=== PATIENT | female | born 1940 | race Caucasian/White ===

== ENCOUNTER 2017-03-23 18:04 | Inpatient (IN) | payer MEDICARE, BC ==
[~2017-03-23] VITALS: Ht 157.5 cm; Wt 45.4 kg
--- NOTE | 2017-03-23 18:04 | NUR ---
[place] FROM [facility] C/O ALTERED MENTAL STATUS TODAY REFUSED MEDS RECENTLY DISCHARGE FROM [facility] YESTERDAY. AWAITING MD ORDER
--- NOTE | 2017-03-23 18:48 | NUR ---
VERBAL ORDER FROM DR MADDOX HOLD ON IV FLUIDS AND IV ACCESS.
--- NOTE | 2017-03-23 18:49 | NUR ---
CALLED [facility] FENTON SPOKE TO GOBA VERBALIZED SHE DOESNT KNOW WHY PATIENT WAS DISCHARGE FROM HOSPITAL . PT REFUSED MEDS TODAY MORE CONFUSED THAN BASELINE
[2017-03-23] MEDS ORDERED: IV NS 0.9% 500 ML BAG IV ONE (19:00)
[2017-03-23 19:02] LABS: BASOPHILS % (AUTO) 0.2 % (0.0-2.0); EOSINOPHILS # (AUTO) 0.1 /CMM (0.0-0.7); EOSINOPHILS % (AUTO) 0.3 % (0.0-6.0); HEMATOCRIT 28 % (33-45); HEMOGLOBIN 9.4 g/dL (11.5-14.8); LYMPHOCYTES # (AUTO) 0.7 /CMM (0.8-4.8); LYMPHOCYTES % (AUTO) 3.9 % (20.0-44.0); MEAN CORPUSCULAR HEMOGLOBIN 26 PG (26.0-33.0); MEAN CORPUSCULAR HGB CONC 34 g/dl (31.0-36.0); MEAN CORPUSCULAR VOLUME 77 fL (82-100); MONOCYTES # (AUTO) 1.2 /CMM (0.1-1.30); MONOCYTES % (AUTO) 6.9 % (2.0-12.0); NEUTROPHILS # (AUTO) 16.1 /CMM (1.8-8.9); NEUTROPHILS % (AUTO) 88.7 % (43.0-81.0); PLATELET COUNT (AUTO) 196 /CMM (150-450); RDW COEFFICIENT OF VARIATION 14.1 (11.5-15.0); RED BLOOD CELL COUNT(AUTO) 3.58 MIL/uL (4.0-5.2); WHITE BLOOD COUNT (AUTO) 18.1 K/uL (4.3-11.0)
--- NOTE | 2017-03-23 19:12 | NUR ---
EKG IN PROGRESS AT BEDSIDE
[2017-03-23 19:17] LABS: CALCIUM, SERUM 9.8 mg/dL (8.5-10.1); CARBON DIOXIDE 29 mmol/L (21-32); CHLORIDE 99 mmol/L (98-107); GLUCOSE 234 mg/dL (74-106); POTASSIUM 4.1 mmol/L (3.5-5.1); SODIUM SERUM 134 mmol/L (136-145); UREA NITROGEN, BLOOD 35 mg/dL (7-18)
[2017-03-23 19:24] LABS: ALANINE AMINOTRANSFERASE 13 U/L (12-78); ALBUMIN 3.2 g/dL (3.4-5.0); ALKALINE PHOSPHATASE 57 U/L (46-116); ASPARTATE AMINOTRANSFERASE 12 U/L (15-37); BILIRUBIN,DIRECT 0.1 mg/dL (0.0-0.2); BILIRUBIN,TOTAL 0.4 mg/dL (0.2-1.0); LIPASE 53 U/L (73-393); TROPONIN I < 0.017 ng/mL (0.00-0.056)
[2017-03-23 19:26] LABS: INR 1.06 (0.87-1.13)
[2017-03-23] MEDS ORDERED: LORAZEPAM INJ 2 MG/ML VIAL ONE (19:27)
[2017-03-23] MEDS ORDERED: LORAZEPAM INJ 2 MG/ML VIAL IV ONE (19:30)
[2017-03-23 19:32] LABS: APPEARANCE,URINE Clear (CLEAR); BILIRUBIN,URINE SMALL (NEGATIVE); BLOOD, URINE Trace-lysed Ery/uL (NEGATIVE); COLOR,URINE Yellow (YELLOW); KETONES,URINE Trace (NEGATIVE); LEUKOCYTE ESTERASE ,URINE Negative (NEGATIVE); NITRITE, URINE Negative (NEGATIVE); PH,URINE 5.5 (5.0-8.0); PROTEIN,URINE 100 mg/dl (NEGATIVE); UGLUCOSE Negative (NEGATIVE); UROBILINOGEN,URINE 0.2 EU/dL (0.2)
[2017-03-23 19:41] LABS: BACTERIA,URINE Rare /HPF (None Seen); SQUAMOUS EPITHELIAL CELL,UR Few /HPF (None Seen); WBC,URINE 0-2 /HPF (0-3)
--- NOTE | 2017-03-23 19:46 | NUR ---
LAB CALLED REGARDING LACTIC ACID DRAW.
--- NOTE | 2017-03-23 19:55 | NUR ---
CALLED RT FOR ABG
[2017-03-23] MEDS ORDERED: HALOPERIDOL LACTATE INJ 5 MG/ML VIAL ONE (19:56)
[2017-03-23] MEDS ORDERED: HALOPERIDOL LACTATE INJ 5 MG/ML VIAL IM ONE (20:00)
[2017-03-23 20:16] LABS: ABG BASE EXCESS -4.8 mmol/L; ABG PCO2 27.9 mmHg (35.0-45.0); ABG PH 7.435 (7.350-7.450); ABG PO2 99.8 mmHg (75.0-100.0); AaDO2 16.5 mmHg; COHb 0.7 % (0.5-1.5); MetHb 0.4 % (0.0-1.5); O2Hb 95.9 % (94.0-97.0); SITE, ABG Right Brachial; VENT MODE, BG RA
--- NOTE | 2017-03-23 20:17 | NUR ---
PT TRANSPORTED TO RADIOLOGY FOR CT HEAD.
--- NOTE | 2017-03-23 20:17 | NUR ---
PT TO CT SCAN
--- NOTE | 2017-03-23 20:29 | NUR ---
PT BACK FROM CT SCAN
[2017-03-23] MEDS ORDERED: PIPERACILLIN /TAZOBACTAM 3.375 G in IV D5W 50 ML IV ONE (21:00)
[2017-03-23] MEDS ORDERED: VANCOMYCIN 1 GM in IV D5W 250 ML IV ONE (21:00)
[2017-03-23] MEDS ORDERED: IV NS 0.9% 1,000 ML BAG IV ONE ×2 (21:00)
--- NOTE | 2017-03-23 21:20 | NUR ---
SAMI PAGED, WHEEL INSTALLER
--- NOTE | 2017-03-23 21:21 | NUR ---
CALLED FOR [facility] BED
[2017-03-23] MEDS ORDERED: MORPHINE SULFATE INJ 2 MG/ML DISP.SYRIN IV PRN (21:30)
[2017-03-23] MEDS ORDERED: Z GUARD REMEDY 2 OZ OINT TP PRN (21:30)
[2017-03-23] MEDS ORDERED: ENOXAPARIN SODIUM 40 MG/0.4 ML DISP.SYRIN SQ SCH (21:30)
[2017-03-23] MEDS ORDERED: ACETAMINOPHEN 650 MG/SUPP.RECT RC PRN (21:30)
--- NOTE | 2017-03-23 21:30 | NUR ---
THIERNO 115-1
--- NOTE | 2017-03-23 21:31 | NUR ---
MOVE SHEETS TURNED IN
[2017-03-23] MEDS ORDERED: ENOXAPARIN SODIUM 40 MG/0.4 ML DISP.SYRIN SQ ONE (21:36)
[2017-03-23 23:11] LABS: CSF GLUCOSE 119 mg/dL (40-70)
[2017-03-23 23:13] LABS: CSF PROTEIN 239.5 mg/dL (15-45)
--- NOTE | 2017-03-23 23:27 | NUR ---
PT RESTING QUIETLY, NO ACUTE DISTRESS NOTED, RESP EVEN AND UNLABORED.
[2017-03-23] MEDS ORDERED: CEFTRIAXONE 1GM BAG (ER ONLY) 100 ML IV ONE (23:44)
[2017-03-23] MEDS ORDERED: DEXAMETHASONE SOD PHOSPHATE 10 MG/ML VIAL ONE (23:44)
[2017-03-24] MEDS ORDERED: DEXAMETHASONE SOD PHOSPHATE 4 MG/ML VIAL IV ONE
[2017-03-24] MEDS ORDERED: CEFTRIAXONE 2 G in IV D5W 100 ML IV SCH ×2
--- NOTE | 2017-03-24 00:28 | NUR ---
REPORT CALLED TO TELE 1 RN. WILL TRANSPORT PT VIA ACLS PROTOCOL.
--- NOTE | 2017-03-24 00:28 | NUR ---
ACYCLOVIR 500MG IVPB ENDORSED TO TELE 1 ELLIOT HUANG.
[2017-03-24 00:40] VITALS: BP 140/79
--- NOTE | 2017-03-24 00:40 | NUR ---
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 NO BLEEDING NOTED ON THE LUMBAR SITE.ALL NEEDS ATTENDED TOO CALL LIGHT WITHIN REACH .DUE MEDS GIVEN ORDERED,ADMISSION ROUTINE CARE RENDERED ,PTS IS UNDER THE SERVICE OF DR KAMERON MARSH, SEEN AND EXAMINE BY DR MELO AT BEDSIDE WITH ORDER MADE AND CARRIED OUT, BODY CHECK DONE, NO SKIN ISSUE NOTED.PTS IS CONTACT ISOLATION DROPLET D/T POSSIBLE MENINGITIS .ALL NEEDS ATTENDED TOO CALL LIGHT WITHIN REACH KEPT PTS CLEAN DRY AND COMFORTABLE,WILL CONTINUE TO MONITOR PTS.
[2017-03-24] MEDS: IV NS 0.9% 1,000 ML IV PRN ×2 (01:29→17:58)
[2017-03-24] MEDS ORDERED: ACYCLOVIR IV 1 GM/20 ML VIAL IV ONE (01:54)
[2017-03-24] MEDS ORDERED: ACYCLOVIR IV 500 MG in IV D5W 100 ML IV SCH ×8 (02:00→06:00)
[2017-03-24 04:00] VITALS: BP 151/78
--- NOTE | 2017-03-24 04:27 | NUR ---
THIERNO RN NOTES PTS NOTED MORE ALERT VERBALLY RESPONSIVE AT THIS TIME, ABLE TO MAKE NEEDS KNOWN.
[2017-03-24] MEDS ORDERED: PIPERACILLIN /TAZOBACTAM 2.25 G VIAL IV ONE (04:36)
[2017-03-24] MEDS ORDERED: PIPERACILLIN /TAZOBACTAM 4.5 G in IV D5W 50 ML IV SCH (05:00)
--- NOTE | 2017-03-24 06:26 | NUR ---
THIERNO RN NOTES PTS IN BED AWAKE AND RESPONSIVE REMAINS ON IV FLUIDS NS AT 100CC/HR IN PROGRESS, NO SIGNIFICANT CHANGE NOTED , NO SOB NO DISTRESS , WILL ENDORSE TO RN DAY SHIFT .
[2017-03-24] MEDS ORDERED: TRAM50TA2 PO (07:43)
[2017-03-24] MEDS ORDERED: CHOL100044 PO (07:43)
[2017-03-24] MEDS ORDERED: QUET25TA PO ×2 (07:43)
[2017-03-24] MEDS ORDERED: NAPR500T4 PO (07:43)
[2017-03-24] MEDS ORDERED: HYDR-4076 PO (07:43)
[2017-03-24] MEDS ORDERED: ESCI10TA PO (07:43)
[2017-03-24] MEDS ORDERED: MAGN400T26 PO (07:43)
[2017-03-24] MEDS ORDERED: PANT40TA4 PO (07:43)
[2017-03-24] MEDS ORDERED: MULT-24 PO (07:43)
[2017-03-24] MEDS ORDERED: ACET-868 PO (07:43)
[2017-03-24] MEDS ORDERED: LEVO150T8 PO (07:43)
[2017-03-24] MEDS ORDERED: BLOO-668 IN (07:43)
[2017-03-24] MEDS ORDERED: DIVA500T7 PO (07:43)
[2017-03-24] MEDS ORDERED: CLON0.1T PO (07:43)
[2017-03-24] MEDS ORDERED: TRAZ-144 PO (07:43)
[2017-03-24] MEDS ORDERED: AMLO5TAB2 PO (07:43)
[2017-03-24] MEDS ORDERED: BRIM5DRO2 EACHEYE (07:43)
[2017-03-24] MEDS ORDERED: LOPE2CAP PO (07:43)
[2017-03-24] MEDS ORDERED: GLIP5TAB13 PO (07:43)
[2017-03-24] MEDS ORDERED: METF500T4 PO (07:43)
[2017-03-24] MEDS ORDERED: PROP40TA7 PO (07:43)
--- NOTE | 2017-03-24 07:50 | NUR ---
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 WNL, SR, SBP over 100 below 150, has vent.shunt, will s/w for home meds verification
[2017-03-24 07:59] LABS: HEMATOCRIT 26 % (33-45); HEMOGLOBIN 8.4 g/dL (11.5-14.8); LYMPHOCYTES # (AUTO) 0.4 /CMM (0.8-4.8); LYMPHOCYTES % (AUTO) 2.7 % (20.0-44.0); MEAN CORPUSCULAR HEMOGLOBIN 26 PG (26.0-33.0); MEAN CORPUSCULAR HGB CONC 33 g/dl (31.0-36.0); MEAN CORPUSCULAR VOLUME 80 fL (82-100); MONOCYTES # (AUTO) 0.8 /CMM (0.1-1.30); MONOCYTES % (AUTO) 5.3 % (2.0-12.0); NEUTROPHILS # (AUTO) 14.5 /CMM (1.8-8.9); PLATELET COUNT (AUTO) 144 /CMM (150-450); RDW COEFFICIENT OF VARIATION 15.5 (11.5-15.0); RED BLOOD CELL COUNT(AUTO) 3.22 MIL/uL (4.0-5.2); WHITE BLOOD COUNT (AUTO) 15.7 K/uL (4.3-11.0)
[2017-03-24 08:00] VITALS: BP 146/74
[2017-03-24 08:25] LABS: CHOLESTEROL 128 mg/dL (<200); HDL CHOLESTEROL 36 mg/dL (40-60); LDL 63 mg/dL (0-99); TRIGLYCERIDES 82 mg/dL (30-150)
[2017-03-24 08:36] LABS: CALCIUM, SERUM 8.4 mg/dL (8.5-10.1); CARBON DIOXIDE 22 mmol/L (21-32); CHLORIDE 103 mmol/L (98-107); GLUCOSE 307 mg/dL (74-106); MAGNESIUM 1.4 mg/dL (1.8-2.4); POTASSIUM 3.8 mmol/L (3.5-5.1); SODIUM SERUM 137 mmol/L (136-145); UREA NITROGEN, BLOOD 26 mg/dL (7-18)
[2017-03-24] MEDS ORDERED: FEE PK DOSING 1 MIN EA MC ONE (08:50)
[2017-03-24] MEDS ORDERED: PANTOPRAZOLE 40 MG VIAL IV SCH (09:00)
[2017-03-24] MEDS: VANCOMYCIN 500 MG in IV D5W 100 ML IV SCH ×2 (10:05→21:06)
[2017-03-24] MEDS: Magnesium 1GM/D5W 100ML PREMIX 100 ML IV SCH ×4 (10:39→13:40)
[2017-03-24] MEDS: PIPERACILLIN /TAZOBACTAM 3.375 G in IV D5W 50 ML IV SCH ×2 (11:47→17:55)
[2017-03-24 12:00] VITALS: BP 141/71
--- NOTE | 2017-03-24 12:00 | NUR ---
RN THIERNO: pt.is awake, can follow simple commands, weak, needy, can swallow ice chips, no any pain, no Sz, was in unit/updated
--- NOTE | 2017-03-24 13:30 | NUR ---
RN THIERNO: Sarah Sánchez, CULTURED [employer] MAK[employer] is in room, notified re pt.current/neuro status, VS, I/O, IVF, visit, NPO status, BS, home meds verification, said: ID MD is going be on case, see new orders
[2017-03-24] MEDS ORDERED: CLONIDINE HCL 0.1 MG TABLET PO PRN (14:00)
[2017-03-24] MEDS ORDERED: ACETAMINOPHEN 325 MG TABLET PO PRN (14:00)
[2017-03-24] MEDS ORDERED: TRAMADOL HCL 50 MG TABLET PO PRN (14:00)
[2017-03-24] MEDS ORDERED: QUETIAPINE FUMARATE 25 MG TABLET PO PRN (14:00)
[2017-03-24] MEDS: ACYCLOVIR IV 500 MG in IV D5W 100 ML IV SCH ×2 (14:20→20:56)
[2017-03-24 16:00] VITALS: BP 126/61
--- NOTE | 2017-03-24 16:21 | NUR ---
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 Pt.is more awake/Ox2, no c/o now, no pain, o2 sat. WNL
[2017-03-24] MEDS: DIVALPROEX SODIUM 500 MG TABLET.DR PO SCH (17:53)
[2017-03-24] MEDS: NAPROXEN 500 MG TABLET PO SCH (17:53)
[2017-03-24] MEDS: glipiZIDE 5 MG TABLET PO SCH (17:53)
[2017-03-24] MEDS: PROPRANOLOL HCL 40 MG TABLET PO SCH (17:53)
[2017-03-24] MEDS: METFORMIN 500 MG TABLET PO SCH (17:53)
[2017-03-24] MEDS: hydrALAZINE HCL 25 MG TABLET PO SCH (17:54)
[2017-03-24] MEDS: BRIMONIDINE TARTRATE OPHT SOLN 5 ML BOTTLE EACHEYE SCH (18:48)
[2017-03-24 20:00] VITALS: BP 98/50
[2017-03-24] MEDS: ENOXAPARIN SODIUM 30 MG/0.3 ML DISP.SYRIN SQ SCH (20:50)
[2017-03-24] MEDS: TRAZODONE 50 MG TABLET PO SCH (22:00)
[2017-03-24] MEDS: QUETIAPINE FUMARATE 25 MG TABLET PO SCH (22:00)
[2017-03-25] VITALS: BP 83/50
[2017-03-25 04:00] VITALS: BP 113/60
[2017-03-25] MEDS: ACYCLOVIR IV 500 MG in IV D5W 100 ML IV SCH ×2 (04:20→12:46)
[2017-03-25] MEDS: IV NS 0.9% 1,000 ML IV PRN ×2 (04:21→17:15)
[2017-03-25] MEDS ORDERED: LEVOTHYROXINE SODIUM 150 MCG TABLET PO SCH (07:30)
[2017-03-25 08:00] VITALS: BP 135/65
[2017-03-25] MEDS ORDERED: MEROPENEM 1 G in IV NS 0.9% 100 ML IV SCH (08:00)
--- NOTE | 2017-03-25 08:00 | NUR ---
TD/RN AM SHIFT INITIAL NOTES RECEIVED PT ASLEEP IN BED, AROUSEABLE, NO ACUTE CHANGE OF CONDITION, NO FEVER. PT A/O X 2, DENIES ANY SYMPTOMS. ON 2L O2 VIA N/C SATURATING @ 97% LUNG SOUNDS DIMINISHED. ON TELE WITH SINUS RHYTHM, HR 71. WITH ON GOING IV INFUSION OF NS @ 100CC/HR, MIDLINE PATENT WITH NO S/S OF INFECTION. LEWIS CATHETER INTACT WITH YELLOW URINE OUTPUT. PT IS COMFORTABLE, SCHEDULED AM MEDS TO BE GIVEN. CL WITHIN REACHED, SAFETY MAINTAINED AND ISOLATION OBSERVED. ON GOING MONITORING.
[2017-03-25] MEDS: NAPROXEN 500 MG TABLET PO SCH ×2 (08:38→17:07)
[2017-03-25] MEDS: PROPRANOLOL HCL 40 MG TABLET PO SCH ×3 (08:38→17:00)
[2017-03-25] MEDS: ESCITALOPRAM OXALATE (10 MG) 10 MG TABLET PO SCH (08:38)
[2017-03-25] MEDS: PANTOPRAZOLE 40 MG TABLET.DR PO SCH (08:38)
[2017-03-25] MEDS: glipiZIDE 5 MG TABLET PO SCH ×2 (08:39→17:07)
[2017-03-25] MEDS: DIVALPROEX SODIUM 500 MG TABLET.DR PO SCH ×2 (08:39→17:07)
[2017-03-25] MEDS: CHOLECALCIFEROL 1,000 UNIT TABLET (VIT D3) PO SCH (08:39)
[2017-03-25] MEDS: AMLODIPINE BESYLATE 5 MG TABLET PO SCH (08:39)
[2017-03-25] MEDS: hydrALAZINE HCL 25 MG TABLET PO SCH ×2 (08:39→17:00)
[2017-03-25] MEDS: METFORMIN 500 MG TABLET PO SCH ×2 (08:39→17:07)
[2017-03-25] MEDS ORDERED: LEVOTHYROXINE SODIUM 75 MCG TABLET PO SCH (08:43)
[2017-03-25 08:59] LABS: BASOPHILS % (AUTO) 0.1 % (0.0-2.0); EOSINOPHILS # (AUTO) 0.2 /CMM (0.0-0.7); EOSINOPHILS % (AUTO) 2.1 % (0.0-6.0); HEMATOCRIT 25 % (33-45); HEMOGLOBIN 8.1 g/dL (11.5-14.8); LYMPHOCYTES # (AUTO) 0.8 /CMM (0.8-4.8); LYMPHOCYTES % (AUTO) 6.7 % (20.0-44.0); MEAN CORPUSCULAR HEMOGLOBIN 25 PG (26.0-33.0); MEAN CORPUSCULAR HGB CONC 32 g/dl (31.0-36.0); MEAN CORPUSCULAR VOLUME 79 fL (82-100); MONOCYTES # (AUTO) 0.9 /CMM (0.1-1.30); MONOCYTES % (AUTO) 7.6 % (2.0-12.0); NEUTROPHILS # (AUTO) 9.4 /CMM (1.8-8.9); NEUTROPHILS % (AUTO) 83.5 % (43.0-81.0); PLATELET COUNT (AUTO) 165 /CMM (150-450); RDW COEFFICIENT OF VARIATION 15.5 (11.5-15.0); RED BLOOD CELL COUNT(AUTO) 3.21 MIL/uL (4.0-5.2); WHITE BLOOD COUNT (AUTO) 11.3 K/uL (4.3-11.0)
[2017-03-25] MEDS: MULTIVITAMINS,THERAGRAN 1 UDTAB TABLET PO SCH (09:03)
[2017-03-25] MEDS: BRIMONIDINE TARTRATE OPHT SOLN 5 ML BOTTLE EACHEYE SCH ×2 (09:03→17:00)
[2017-03-25] MEDS: LEVOTHYROXINE SODIUM 75 MCG TABLET PO SCH (09:07)
[2017-03-25 09:13] LABS: CARBON DIOXIDE 23 mmol/L (21-32); CHLORIDE 106 mmol/L (98-107); CREATININE 1.1 mg/dL (0.6-1.3); GLUCOSE 137 mg/dL (74-106); MAGNESIUM 2.3 mg/dL (1.8-2.4); PHOSPHORUS 2.9 mg/dL (2.5-4.9); POTASSIUM 3.5 mmol/L (3.5-5.1); SODIUM SERUM 138 mmol/L (136-145); UREA NITROGEN, BLOOD 23 mg/dL (7-18)
[2017-03-25] MEDS: VANCOMYCIN 500 MG in IV D5W 100 ML IV SCH ×2 (09:33→21:20)
--- NOTE | 2017-03-25 11:38 | NUR ---
MS1/TOOL TURRET LATHE SET UP OPERATOR OF CARE REPORT GIVEN NURSE JOSSELYN TO CONTINUE CARE.
--- NOTE | 2017-03-25 12:10 | NUR ---
MS RN RECEIVED A REPORT ,PATIENT AWAKE,ALERT,ORIENTED X2,NOT IN ANY FORM OF DISTRESS, RESPIRATIONS EVEN AND UNLABORED,NO SOB NOTWED. WILL MONITOR PATIENT.
[2017-03-25] MEDS ORDERED: FUROSEMIDE 20 MG/2 ML VIAL IV ONE (13:30)
[2017-03-25] MEDS ORDERED: IPRATROPIUM NEB FS 0.5 MG/2.5 ML AMPUL.NEB NEB PRN (13:30)
[2017-03-25] MEDS ORDERED: ALBUTEROL FS 2.5 MG/0.5 ML VIAL.NEB NEB PRN (13:30)
[2017-03-25 16:00] VITALS: BP 111/51
--- NOTE | 2017-03-25 18:43 | NUR ---
MS RN ON BED, NO DISTRESS NOTED, NO CHANGE OF CONDITION.
[2017-03-25 20:00] VITALS: BP 119/55
[2017-03-25] MEDS: TRAZODONE 50 MG TABLET PO SCH (21:46)
[2017-03-25] MEDS: QUETIAPINE FUMARATE 25 MG TABLET PO SCH (21:46)
[2017-03-25] MEDS: ENOXAPARIN SODIUM 30 MG/0.3 ML DISP.SYRIN SQ SCH (21:46)
[2017-03-26 04:00] VITALS: BP 141/70
[2017-03-26 07:22] LABS: CALCIUM, SERUM 8.3 mg/dL (8.5-10.1); CARBON DIOXIDE 23 mmol/L (21-32); CHLORIDE 111 mmol/L (98-107); CREATININE 0.9 mg/dL (0.6-1.3); GLUCOSE 79 mg/dL (74-106); MAGNESIUM 1.8 mg/dL (1.8-2.4); POTASSIUM 3.3 mmol/L (3.5-5.1); SODIUM SERUM 144 mmol/L (136-145); UREA NITROGEN, BLOOD 16 mg/dL (7-18)
[2017-03-26 07:28] LABS: BASOPHILS % (AUTO) 0.2 % (0.0-2.0); EOSINOPHILS # (AUTO) 0.2 /CMM (0.0-0.7); EOSINOPHILS % (AUTO) 3.5 % (0.0-6.0); HEMATOCRIT 25 % (33-45); HEMOGLOBIN 7.9 g/dL (11.5-14.8); LYMPHOCYTES # (AUTO) 0.9 /CMM (0.8-4.8); LYMPHOCYTES % (AUTO) 13.6 % (20.0-44.0); MEAN CORPUSCULAR HEMOGLOBIN 26 PG (26.0-33.0); MEAN CORPUSCULAR HGB CONC 32 g/dl (31.0-36.0); MEAN CORPUSCULAR VOLUME 80 fL (82-100); MONOCYTES # (AUTO) 0.8 /CMM (0.1-1.30); MONOCYTES % (AUTO) 12.1 % (2.0-12.0); NEUTROPHILS # (AUTO) 4.9 /CMM (1.8-8.9); NEUTROPHILS % (AUTO) 70.6 % (43.0-81.0); PLATELET COUNT (AUTO) 185 /CMM (150-450); RDW COEFFICIENT OF VARIATION 15.1 (11.5-15.0); WHITE BLOOD COUNT (AUTO) 6.9 K/uL (4.3-11.0)
--- NOTE | 2017-03-26 07:35 | NUR ---
RN NOTES PATIENT RECEIVED, ASLEEP, RESTING COMFORTABLY IN BED, EASILY AROUSABLE DURING CARE NOTED WITH PERIODS OF CONFUSION AND FORGETFULNESS. RESPIRATIONS EVEN AND UNLABORED, DENIES ANY PAIN OR DISCOMFORT AT THIS TIME. MARZENA MIDLINE IV ACCESS TO NOTED PATENT AND INTACT NO REDNESS OR INFILTRATION NOTED. LEWIS CATHETER IN PLACE AND PATENT, SAFETY MEASURES IN PLACE, KEPT CLEAN DRY AND COMFORTABLE, CALL LIGHT WITHIN EASY REACH, WILL CONTINUE TO MONITOR
[2017-03-26 08:00] VITALS: BP 156/73
[2017-03-26] MEDS: NAPROXEN 500 MG TABLET PO SCH ×2 (09:40→17:35)
[2017-03-26] MEDS: CHOLECALCIFEROL 1,000 UNIT TABLET (VIT D3) PO SCH (09:40)
[2017-03-26] MEDS: glipiZIDE 5 MG TABLET PO SCH ×2 (09:40→17:35)
[2017-03-26] MEDS: PANTOPRAZOLE 40 MG TABLET.DR PO SCH (09:40)
[2017-03-26] MEDS: ESCITALOPRAM OXALATE (10 MG) 10 MG TABLET PO SCH (09:40)
[2017-03-26] MEDS: METFORMIN 500 MG TABLET PO SCH ×2 (09:40→17:35)
[2017-03-26] MEDS: DIVALPROEX SODIUM 500 MG TABLET.DR PO SCH ×2 (09:40→17:35)
[2017-03-26] MEDS: LEVOTHYROXINE SODIUM 75 MCG TABLET PO SCH (09:40)
[2017-03-26] MEDS: MULTIVITAMINS,THERAGRAN 1 UDTAB TABLET PO SCH (09:40)
[2017-03-26] MEDS: AMLODIPINE BESYLATE 5 MG TABLET PO SCH (09:41)
[2017-03-26] MEDS: PROPRANOLOL HCL 40 MG TABLET PO SCH ×3 (09:41→17:36)
[2017-03-26] MEDS: hydrALAZINE HCL 25 MG TABLET PO SCH ×3 (09:41→17:37)
[2017-03-26] MEDS: VANCOMYCIN 500 MG in IV D5W 100 ML IV SCH ×2 (09:43→22:09)
[2017-03-26] MEDS: BRIMONIDINE TARTRATE OPHT SOLN 5 ML BOTTLE EACHEYE SCH ×2 (09:44→17:38)
--- NOTE | 2017-03-26 10:59 | NUR ---
RN NOTES ALL DUE MEDICATIONS ADMINISTERED WITH NO ASE NOTED, WILL CONTINUE TO MONITOR
[2017-03-26] MEDS ORDERED: POTASSIUM CHLORIDE 20 MEQ TAB.PRT.SR PO SCH (11:30)
[2017-03-26 12:00] VITALS: BP 124/58
[2017-03-26] MEDS: IV NS 0.9% 1,000 ML IV PRN (12:56)
--- NOTE | 2017-03-26 14:29 | NUR ---
RN NOTES LEWIS CATH REMOVAL LEWIS CATHETER REMOVED WITH NO ASE NOTED, WILL CONTINUE TO MONITOR FOR URINARY RETENTION
--- NOTE | 2017-03-26 19:15 | NUR ---
RECEIVED PATIENT AND REPORT FROM DAY SHIFT.
--- NOTE | 2017-03-26 19:31 | NUR ---
RN NOTES PATIENT ASLEEP, RESTING COMFORTABLY IN BED, EASILY AROUSABLE DURING CARE NOTED WITH PERIODS OF CONFUSION AND FORGETFULNESS. RESPIRATIONS EVEN AND UNLABORED, DENIES ANY PAIN OR DISCOMFORT AT THIS TIME. MARZENA MIDLINE IV ACCESS UNABLE TO BE FLUSHED PER RN INPATIENT CODER AND CHARGE NURSE MIDLINE REINSERTION TO BE DONE ONCOMING RN AWARE. LEWIS CATHETER REMOVED AND ABLE TO VOID FREELY, SAFETY MEASURES IN PLACE, KEPT CLEAN DRY AND COMFORTABLE, CALL LIGHT WITHIN EASY REACH, ENDORSED TO NEXT SHIFT FOR CONTINUITY OF CARE
[2017-03-26 20:00] VITALS: BP 122/56
--- NOTE | 2017-03-26 21:00 | NUR ---
PATIENT WITH NEW RIGHT UPPER ARM MIDLINE. PATENT AND INTACT, FLUSHES EASY. NO SIGNS OF PHLEBITIS OR INFILTRATION
[2017-03-26] MEDS: ENOXAPARIN SODIUM 30 MG/0.3 ML DISP.SYRIN SQ SCH (22:10)
[2017-03-26] MEDS: QUETIAPINE FUMARATE 25 MG TABLET PO SCH (22:10)
[2017-03-26] MEDS: TRAZODONE 50 MG TABLET PO SCH (22:10)
[2017-03-27 04:00] VITALS: BP 120/69
--- NOTE | 2017-03-27 06:34 | NUR ---
MS RN CLOSING NOTES. PATIENT IS IN BED RESTING COMFORTABLY. EASILY AROUSABLE. NO SIGNS OF DISTRESS OR SOB. DENIES PAIN. MARZENA MIDLINE PATENT AND INTACT. CALL LIGHT WITHIN REACH.
[2017-03-27 07:10] LABS: CALCIUM, SERUM 8.7 mg/dL (8.5-10.1); CARBON DIOXIDE 23 mmol/L (21-32); CHLORIDE 107 mmol/L (98-107); CREATININE 0.8 mg/dL (0.6-1.3); GLUCOSE 102 mg/dL (74-106); MAGNESIUM 1.4 mg/dL (1.8-2.4); PHOSPHORUS 3.2 mg/dL (2.5-4.9); POTASSIUM 3.7 mmol/L (3.5-5.1); SODIUM SERUM 139 mmol/L (136-145); UREA NITROGEN, BLOOD 17 mg/dL (7-18)
--- NOTE | 2017-03-27 07:30 | NUR ---
PT RECEIVED RESTING COMFORTABLY IN BED WITH EYES CLOSED. NO S/S OR C/O PAIN OR DISTRESS NOTED. SIDE RAILS UP X2, CALL LIGHT LEFT WITHIN REACH. WILL CONTINUE PLAN OF CARE.
[2017-03-27 07:46] LABS: BASOPHILS % (AUTO) 0.6 % (0.0-2.0); EOSINOPHILS # (AUTO) 0.2 /CMM (0.0-0.7); EOSINOPHILS % (AUTO) 3.7 % (0.0-6.0); HEMATOCRIT 26 % (33-45); HEMOGLOBIN 8.6 g/dL (11.5-14.8); LYMPHOCYTES # (AUTO) 1.3 /CMM (0.8-4.8); LYMPHOCYTES % (AUTO) 22.4 % (20.0-44.0); MEAN CORPUSCULAR HEMOGLOBIN 26 PG (26.0-33.0); MEAN CORPUSCULAR HGB CONC 33 g/dl (31.0-36.0); MEAN CORPUSCULAR VOLUME 78 fL (82-100); MONOCYTES # (AUTO) 0.9 /CMM (0.1-1.30); NEUTROPHILS # (AUTO) 3.4 /CMM (1.8-8.9); NEUTROPHILS % (AUTO) 58.3 % (43.0-81.0); PLATELET COUNT (AUTO) 191 /CMM (150-450); RDW COEFFICIENT OF VARIATION 15.5 (11.5-15.0); RED BLOOD CELL COUNT(AUTO) 3.34 MIL/uL (4.0-5.2); WHITE BLOOD COUNT (AUTO) 5.8 K/uL (4.3-11.0)
[2017-03-27 08:00] VITALS: BP 130/92
[2017-03-27] MEDS: AMLODIPINE BESYLATE 5 MG TABLET PO SCH (08:46)
[2017-03-27] MEDS: hydrALAZINE HCL 25 MG TABLET PO SCH ×2 (08:46→17:26)
[2017-03-27] MEDS: PROPRANOLOL HCL 40 MG TABLET PO SCH ×3 (08:47→17:26)
[2017-03-27] MEDS: METFORMIN 500 MG TABLET PO SCH ×2 (08:47→17:27)
[2017-03-27] MEDS: PANTOPRAZOLE 40 MG TABLET.DR PO SCH (08:47)
[2017-03-27] MEDS: DIVALPROEX SODIUM 500 MG TABLET.DR PO SCH ×2 (08:47→17:27)
[2017-03-27] MEDS: CHOLECALCIFEROL 1,000 UNIT TABLET (VIT D3) PO SCH (08:47)
[2017-03-27] MEDS: MULTIVITAMINS,THERAGRAN 1 UDTAB TABLET PO SCH (08:47)
[2017-03-27] MEDS: NAPROXEN 500 MG TABLET PO SCH ×2 (08:47→17:27)
[2017-03-27] MEDS: glipiZIDE 5 MG TABLET PO SCH ×2 (08:47→17:26)
[2017-03-27] MEDS: LEVOTHYROXINE SODIUM 75 MCG TABLET PO SCH (08:47)
[2017-03-27] MEDS: ESCITALOPRAM OXALATE (10 MG) 10 MG TABLET PO SCH (08:58)
[2017-03-27] MEDS: VANCOMYCIN 500 MG in IV D5W 100 ML IV SCH ×2 (09:08→21:31)
[2017-03-27] MEDS: BRIMONIDINE TARTRATE OPHT SOLN 5 ML BOTTLE EACHEYE SCH ×2 (09:08→17:32)
[2017-03-27] MEDS: Magnesium 1GM/D5W 100ML PREMIX 100 ML IV SCH ×4 (11:52→17:27)
[2017-03-27 16:00] VITALS: BP 166/61
[2017-03-27] MEDS ORDERED: Magnesium 1GM/D5W 100ML PREMIX 100 ML IV SCH (16:00)
--- NOTE | 2017-03-27 19:00 | NUR ---
CHANGE OF SHIFT REPORT PT RESTING COMFORTABLY IN BED. NO S/S OR C/O PAIN OR DISTRESS NOTED. SIDE RAILS UP X2, CALL LIGHT LEFT WITHIN REACH. PT KEPT CLEAN, DRY, AND COMFORTABLE. NO SIGNIFICANT CHANGES SINCE PREVIOUS SHIFT. REPORT GIVEN TO CARLITOS ZARATE.
[2017-03-27 20:00] VITALS: BP 133/74
[2017-03-27] MEDS: TRAZODONE 50 MG TABLET PO SCH (21:26)
[2017-03-27] MEDS: QUETIAPINE FUMARATE 25 MG TABLET PO SCH (21:26)
[2017-03-27] MEDS: ENOXAPARIN SODIUM 30 MG/0.3 ML DISP.SYRIN SQ SCH (21:32)
[2017-03-28 04:00] VITALS: BP 136/72
[2017-03-28 08:00] VITALS: BP 147/72
[2017-03-28] MEDS: CHOLECALCIFEROL 1,000 UNIT TABLET (VIT D3) PO SCH (08:01)
[2017-03-28] MEDS: hydrALAZINE HCL 25 MG TABLET PO SCH ×2 (08:01→16:17)
[2017-03-28] MEDS: DIVALPROEX SODIUM 500 MG TABLET.DR PO SCH ×2 (08:01→16:16)
[2017-03-28] MEDS: NAPROXEN 500 MG TABLET PO SCH ×2 (08:01→16:16)
[2017-03-28] MEDS: METFORMIN 500 MG TABLET PO SCH ×2 (08:02→16:16)
[2017-03-28] MEDS: AMLODIPINE BESYLATE 5 MG TABLET PO SCH (08:02)
[2017-03-28] MEDS: glipiZIDE 5 MG TABLET PO SCH ×2 (08:02→16:16)
[2017-03-28] MEDS: MULTIVITAMINS,THERAGRAN 1 UDTAB TABLET PO SCH (08:02)
[2017-03-28] MEDS: PANTOPRAZOLE 40 MG TABLET.DR PO SCH (08:03)
[2017-03-28] MEDS: LEVOTHYROXINE SODIUM 75 MCG TABLET PO SCH (08:03)
[2017-03-28] MEDS: BRIMONIDINE TARTRATE OPHT SOLN 5 ML BOTTLE EACHEYE SCH ×2 (08:03→16:17)
[2017-03-28] MEDS: PROPRANOLOL HCL 40 MG TABLET PO SCH ×4 (08:10→16:16)
[2017-03-28] MEDS: ESCITALOPRAM OXALATE (10 MG) 10 MG TABLET PO SCH (08:10)
--- NOTE | 2017-03-28 09:39 | NUR ---
MS RN NOTES RECEIVED PT ON BED AWAKE, A/0 X2 EPISODES OF CONFUSION. ON ROOM AIR TOLERATING WELL. IV ACCESS MARZENA MIDLINE SALINE LOCK NO SIGN OF INFECTION OR REDNESS OR PAIN. HEAD OF BED ELEVATED. ALARM BED ON. SIDE RAILS UP. CALL LIGHT WITHIN REACH. WILL CONTINUE TO MONITOR PT CLOSELY.
[2017-03-28] MEDS: VANCOMYCIN 500 MG in IV D5W 100 ML IV SCH ×2 (10:00→21:26)
--- NOTE | 2017-03-28 11:04 | NUR ---
MS RN NOTES FOLLOWED UP LAB FOR VANCOMYCIN THROUGH. NOT ABLE TO GET THE BLOOD SAMPLE BECAUSE THE PT IS HARD STICK. VANCOMYCIN ON HOLD. WAITING FOR THE LAB RESULTS
[2017-03-28 11:26] LABS: BASOPHILS % (AUTO) 0.4 % (0.0-2.0); EOSINOPHILS # (AUTO) 0.4 /CMM (0.0-0.7); EOSINOPHILS % (AUTO) 4.3 % (0.0-6.0); HEMATOCRIT 28 % (33-45); LYMPHOCYTES # (AUTO) 1.2 /CMM (0.8-4.8); LYMPHOCYTES % (AUTO) 14.6 % (20.0-44.0); MEAN CORPUSCULAR HEMOGLOBIN 25 PG (26.0-33.0); MEAN CORPUSCULAR HGB CONC 32 g/dl (31.0-36.0); MEAN CORPUSCULAR VOLUME 79 fL (82-100); MONOCYTES # (AUTO) 0.8 /CMM (0.1-1.30); MONOCYTES % (AUTO) 8.9 % (2.0-12.0); NEUTROPHILS # (AUTO) 6.1 /CMM (1.8-8.9); NEUTROPHILS % (AUTO) 71.8 % (43.0-81.0); PLATELET COUNT (AUTO) 226 /CMM (150-450); RDW COEFFICIENT OF VARIATION 15.6 (11.5-15.0); RED BLOOD CELL COUNT(AUTO) 3.55 MIL/uL (4.0-5.2); WHITE BLOOD COUNT (AUTO) 8.4 K/uL (4.3-11.0)
[2017-03-28 11:45] LABS: IRON, SERUM 42 ug/dl (50-175); TOTAL IRON BINDING CAPACITY 321 ug/dl (250-450)
[2017-03-28 11:47] LABS: CALCIUM, SERUM 8.9 mg/dL (8.5-10.1); CARBON DIOXIDE 25 mmol/L (21-32); CHLORIDE 106 mmol/L (98-107); CREATININE 0.9 mg/dL (0.6-1.3); GLUCOSE 135 mg/dL (74-106); MAGNESIUM 1.8 mg/dL (1.8-2.4); POTASSIUM 3.9 mmol/L (3.5-5.1); SODIUM SERUM 141 mmol/L (136-145); UREA NITROGEN, BLOOD 13 mg/dL (7-18)
[2017-03-28 11:57] LABS: FERRITIN 53 ng/mL (8-388)
--- NOTE | 2017-03-28 12:30 | NUR ---
MS RN NOTES CALLED PHARMARCY ABOUT PROPANOLOL THAT IT IS OUT OF STOCK IN THE OMNICELL.
--- NOTE | 2017-03-28 12:52 | NUR ---
MS RN NOTES VANCOMYCIN LEVEL IS 21. HOLDING VANCOMYCIN. NOTIFIED PHARMACY.
--- NOTE | 2017-03-28 14:30 | NUR ---
MS RN NOTES CALLED PHARMACY SECOND TIME ([facility]) REGARDING PROPANOLOL.
[2017-03-28 16:00] VITALS: BP_SYST 150; BP_SYST 163; BP_DIAS 65
--- NOTE | 2017-03-28 18:30 | NUR ---
MS RN NOTES NO ACUTE CHANGES NOTED DURING THE SHIFT. ON ROOM AIR TOLERATING WELL. A/OX3 WITH PERIODS OF CONFUSION. MARZENA MIDLINE NO SIGN OF INFECTION AND PAIN. HEAD OF BED ELEVATED. BED ALARM ON. SIDE RAILS UP. CALL LIGHT IS PLACED WITHIN REACH. DUE MEDS GIVEN. WILL ENDORSE TO THE PM NURSE.
[2017-03-28 20:00] VITALS: BP 132/62
[2017-03-28] MEDS: ENOXAPARIN SODIUM 30 MG/0.3 ML DISP.SYRIN SQ SCH (21:27)
[2017-03-28] MEDS: TRAZODONE 50 MG TABLET PO SCH (21:27)
[2017-03-28] MEDS: QUETIAPINE FUMARATE 25 MG TABLET PO SCH (21:27)
--- NOTE | 2017-03-28 23:11 | NUR ---
MS RN NOTES GIVEN REPORT TO ELLIOT FIELDS. WILL TRANSFER PATIENT TO BED 201 IN [facility] FLO[facility]. PATIENT IS IN STABLE CONDITION AT THIS TIME.
[2017-03-29] VITALS: BP 156/69
--- NOTE | 2017-03-29 02:50 | NUR ---
ADMITTED PATIENT FROM [facility] UNIT PATIENT IS ALERT X 3 CONFUSE AT TIME ON ROOM AIR AMBULATE WITH WALKER VITAL SIGN STABLE SALINE LOCK TO RIGHT UPPER ARM NO INFILTRATIONS NOTED HEAD OF THE BED ELEVATED, PATIENT IS ON DROPLET PRECAUTIONS WILL CONTINUES TO MONITOR THE PATIENT FOR SAFETY AND FALL PRECAUTION.
[2017-03-29] MEDS: LEVOTHYROXINE SODIUM 75 MCG TABLET PO SCH (06:15)
--- NOTE | 2017-03-29 06:44 | NUR ---
NO CHANGES FROM BASE LINE PATIENT REMAIN THE SAME CONDITIONS VITAL SIGN STABLE BREATHING EVEN UNLABORED PAIN MEDICATIONS ADMINISTERED PRESCRIBED. WILL CONTINUES TO MONITOR THE PATIENT WILL ENDORSE TO THE MORNING NURSE TO CONTINUITY OF CARE.
[2017-03-29 07:12] LABS: CALCIUM, SERUM 8.8 mg/dL (8.5-10.1); CARBON DIOXIDE 26 mmol/L (21-32); CHLORIDE 107 mmol/L (98-107); CREATININE 0.8 mg/dL (0.6-1.3); GLUCOSE 82 mg/dL (74-106); POTASSIUM 3.6 mmol/L (3.5-5.1); SODIUM SERUM 142 mmol/L (136-145); UREA NITROGEN, BLOOD 14 mg/dL (7-18)
--- NOTE | 2017-03-29 07:59 | NUR ---
RN OPEN NOTES RECEIVED REPORT FROM STOCKROOM SUPERVISOR RN. PATIENT IS IN BED, AWAKE. HARD OF HEARING. NO SIGNS AND SYMPTOMS OF DISTRESS. BED IN LOW POSITION, LOCKED AND TWO SIDE RAILS ARE UP. CALL LIGHT WITHIN REACH FOR SAFETY. WILL CONTINUE TO MONITOR AND ASSESS PATIENT THROUGH OUT MY SHIFT
[2017-03-29 08:00] VITALS: BP 151/73
[2017-03-29] MEDS: PANTOPRAZOLE 40 MG TABLET.DR PO SCH (09:01)
[2017-03-29] MEDS: ESCITALOPRAM OXALATE (10 MG) 10 MG TABLET PO SCH (09:02)
[2017-03-29] MEDS: hydrALAZINE HCL 25 MG TABLET PO SCH ×2 (09:02→17:10)
[2017-03-29] MEDS: METFORMIN 500 MG TABLET PO SCH ×2 (09:02→17:10)
[2017-03-29] MEDS: PROPRANOLOL HCL 40 MG TABLET PO SCH ×3 (09:02→17:10)
[2017-03-29] MEDS: AMLODIPINE BESYLATE 5 MG TABLET PO SCH (09:03)
[2017-03-29] MEDS: NAPROXEN 500 MG TABLET PO SCH ×2 (09:03→17:10)
[2017-03-29] MEDS: CHOLECALCIFEROL 1,000 UNIT TABLET (VIT D3) PO SCH (09:03)
[2017-03-29] MEDS: DIVALPROEX SODIUM 500 MG TABLET.DR PO SCH ×2 (09:03→17:10)
[2017-03-29] MEDS: glipiZIDE 5 MG TABLET PO SCH ×2 (09:03→17:11)
[2017-03-29] MEDS: MULTIVITAMINS,THERAGRAN 1 UDTAB TABLET PO SCH (09:03)
[2017-03-29] MEDS: BRIMONIDINE TARTRATE OPHT SOLN 5 ML BOTTLE EACHEYE SCH ×2 (09:07→17:13)
--- NOTE | 2017-03-29 14:28 | NUR ---
Per dermatology technician Doctor Jose clears patient in regards to cardiology standpoint for discharge.
[2017-03-29] MEDS: VANCOMYCIN 500 MG in IV D5W 100 ML IV SCH (15:35)
[2017-03-29 16:00] VITALS: BP 166/76
--- NOTE | 2017-03-29 18:56 | NUR ---
RN CLOSING NOTES PATIENT IS IN BED, SLEEPING WITH HER EYES CLOSED,, EASILY AROUSED TO LIGHT TOUCH. HARD OF HEARING. . NO SIGNS AND SYMPTOMS OF DISTRESS. BREATHING IS UNLABORED AND EVEN. BED IN LOW POSITION, LOCKED AND TWO SIDE RAILS ARE UP FOR SAFETY. CALL LIGHT WITHIN REACH. ALL NURSING CARE ANTICIPATED AND ATTENDED FOR. IV SITE IS INTACT AND PATENT. WILL ENDORSE TO HEAD WAITER/WAITRESS NURSE
--- NOTE | 2017-03-29 19:20 | NUR ---
MS/RN OPENING NOTES PT RECEIVED ASLEEP, A/OX1-2, HARD OF HEARING. 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 FAMILY TO REPLACE BATTERY. ON ROOM AIR, BREATHING EVEN AND UNLABORED. IN NO APPARENT DISTRESS OR PAIN. MARZENA MIDLINE PATENT AND INTACT. BED IN LOW/LOCKED POSITION WITH CALL LIGHT IN REACH. SIDE RAILS UPX2. WILL CONTINUE TO MONITOR
[2017-03-29 20:00] VITALS: BP 116/52
[2017-03-29] MEDS: ENOXAPARIN SODIUM 30 MG/0.3 ML DISP.SYRIN SQ SCH (21:00)
[2017-03-29] MEDS: QUETIAPINE FUMARATE 25 MG TABLET PO SCH (21:20)
[2017-03-29] MEDS: TRAZODONE 50 MG TABLET PO SCH (21:20)
--- NOTE | 2017-03-30 06:23 | NUR ---
MS/RN CLOSING NOTES PT ASLEEP, AROUSABLE TO TOUCH. HEARING AIDES IN BUT NOT WORKING. WRITTEN COMMUNICATION IMPLEMENTED. MARZENA MIDLINE PATENT AND INTACT. ON ROOM AIR, BREATHING EVEN AND UNLABORED. IN NO APPARENT DISTRESS OR PAIN. MADE PT COMFORTABLE DURING SHIFT. ALL NEEDS MET. BED IN LOW/LOCKED POSITION WITH CALL LIGHT IN REACH AT ALL TIMES. NO SIGNIFICANT CHANGES OVERNIGHT. WILL ENDORSE TO AM SHIFT ALAN.
[2017-03-30 08:00] VITALS: BP 144/71
[2017-03-30] MEDS: MULTIVITAMINS,THERAGRAN 1 UDTAB TABLET PO SCH (08:23)
[2017-03-30] MEDS: PROPRANOLOL HCL 40 MG TABLET PO SCH ×3 (08:23→16:49)
[2017-03-30] MEDS: AMLODIPINE BESYLATE 5 MG TABLET PO SCH (08:23)
[2017-03-30] MEDS: DIVALPROEX SODIUM 500 MG TABLET.DR PO SCH ×2 (08:23→16:49)
[2017-03-30] MEDS: CHOLECALCIFEROL 1,000 UNIT TABLET (VIT D3) PO SCH (08:23)
[2017-03-30] MEDS: METFORMIN 500 MG TABLET PO SCH ×2 (08:23→16:49)
[2017-03-30] MEDS: NAPROXEN 500 MG TABLET PO SCH ×2 (08:23→16:48)
[2017-03-30] MEDS: hydrALAZINE HCL 25 MG TABLET PO SCH ×2 (08:23→16:49)
[2017-03-30] MEDS: PANTOPRAZOLE 40 MG TABLET.DR PO SCH (08:23)
[2017-03-30] MEDS: glipiZIDE 5 MG TABLET PO SCH ×2 (08:23→16:49)
[2017-03-30] MEDS: LEVOTHYROXINE SODIUM 75 MCG TABLET PO SCH (08:23)
[2017-03-30] MEDS: ESCITALOPRAM OXALATE (10 MG) 10 MG TABLET PO SCH (08:23)
[2017-03-30] MEDS: BRIMONIDINE TARTRATE OPHT SOLN 5 ML BOTTLE EACHEYE SCH ×2 (08:25→16:49)
[2017-03-30] MEDS: VANCOMYCIN 500 MG in IV D5W 100 ML IV SCH (08:39)
[2017-03-30 08:42] LABS: CALCIUM, SERUM 9.1 mg/dL (8.5-10.1); CARBON DIOXIDE 29 mmol/L (21-32); CHLORIDE 104 mmol/L (98-107); GLUCOSE 61 mg/dL (74-106); POTASSIUM 3.6 mmol/L (3.5-5.1); SODIUM SERUM 140 mmol/L (136-145); UREA NITROGEN, BLOOD 15 mg/dL (7-18)
--- NOTE | 2017-03-30 11:52 | NUR ---
CALLED DR LEE'S OFFICE PER MAYO WAN'S REQUEST TO HAVE THE MD LOOK AT THE ECHO THAT WAS DONE A FEW DAYS AGO TO CLEAR THE PT FOR DISCHARGE. LEFT A MESSAGE WITH THE OFFICE TO HAVE THE MD COME LOOK AT THE PATIENT RESULTS.
[2017-03-30] MEDS ORDERED: VANC500F IV (13:12)
--- NOTE | 2017-03-30 13:42 | NUR ---
CALLED MED RESPONSE. NEXT AVAILABLE AMBULANCE MEDICAL RECORD RETRIEVAL SPECIALIST TIME IS 4PM. WILL GET PATIENT READY AND INFORM FAMILY AND FACILITY.
[2017-03-30 16:49] VITALS: BP 159/80
--- NOTE | 2017-03-30 17:42 | NUR ---
DISCHARGE INSTRUCTIONS GIVEN TO RN AT [facility] PATIENT IS CONFUSED. ALL PAPERWORK SIGNED BY TWO RNS AND BELONGINGS ACCOUNTED FOR. FLU AND PNEUMONIA NOT GIVEN VACCINATION STATUS IS NOT KNOWN AND PATIENT IS REFUSING. IV MIDLINE TO REMAIN IN PLACE IN THE UPPER RIGHT ARM FOR IV ABX ADMINISTRATION. PATIENT LEFT IN STABLE CONDITION, VIA GURNEY WITH TWO EQUIPMENT OILER. NO SOB OR DISTRESS NOTED. PATIENT DENIES PAIN. FAMILY CALLED AND NOTIFIED OF PATIENT TRANSFER.
== END 2017-03-30 17:20 | DRG 91 ==
LOC: ER 18:05 → TELE-TD 22:08 → MEDSG1 03-25 11:15 → MEDSG2 03-28 23:27
PROC: 009U3ZX Drainage of Spinal Canal, Percutaneous Approach, Diagnostic (ICD-10-PCS; principal; 2017-03-23)
PROC: 05H533Z Insertion of Infusion Device into Right Subclavian Vein, Percutaneous Approach (ICD-10-PCS; 2017-03-24)
PROC: 05H533Z Insertion of Infusion Device into Right Subclavian Vein, Percutaneous Approach (ICD-10-PCS; 2017-03-26)
PROC: B546ZZA Ultrasonography of Right Subclavian Vein, Guidance (ICD-10-PCS; 2017-03-26)
DX: T85.730A Infection and inflammatory reaction due to ventricular intracranial (communicating) shunt, initial encounter (principal); N17.0 Acute kidney failure with tubular necrosis; A41.02 Sepsis due to Methicillin resistant Staphylococcus aureus; G93.41 Metabolic encephalopathy; E83.42 Hypomagnesemia; I38 Endocarditis, valve unspecified; E11.65 Type 2 diabetes mellitus with hyperglycemia; R65.20 Severe sepsis without septic shock; E87.2 Acidosis; E78.5 Hyperlipidemia, unspecified; E87.6 Hypokalemia; E55.9 Vitamin D deficiency, unspecified; H91.90 Unspecified hearing loss, unspecified ear; I10 Essential (primary) hypertension; M81.0 Age-related osteoporosis without current pathological fracture; G47.00 Insomnia, unspecified; F03.90 Unspecified dementia, unspecified severity, without behavioral disturbance, psychotic disturbance, mood disturbance, and anxiety; H40.9 Unspecified glaucoma; Z66 Do not resuscitate; Z86.73 Personal history of transient ischemic attack (TIA), and cerebral infarction without residual deficits; Z98.2 Presence of cerebrospinal fluid drainage device; I48.91 Unspecified atrial fibrillation; E89.0 Postprocedural hypothyroidism; Z85.850 Personal history of malignant neoplasm of thyroid; D50.9 Iron deficiency anemia, unspecified; Z91.19 Patient's noncompliance with other medical treatment and regimen; Z96.641 Presence of right artificial hip joint; Y84.9 Medical procedure, unspecified as the cause of abnormal reaction of the patient, or of later complication, without mention of misadventure at the time of the procedure; Y92.89 Other specified places as the place of occurrence of the external cause
CPT/HCPCS: 36415; 36569; 36600; 70450-TC; 71010-TC; 80048-TC; 80061-TC; 80076-TC; 80164-TC; 80202-TC; 81000-TC; 82728-TC; 82803-TC; 82962-TC; 83540-TC; 83605-TC; 83690-TC; 83735-TC; 84100-TC; 84443-TC; 84484-TC; 85025-TC; 85730-TC; 87040-TC; 87070-TC; 87081-TC; 89051-TC; 93307-TC; A4606; A6402; C9113; J0133; J0696; J1100; J1630; J1650; J2060; J2185; J2543; J3370; J3475; J7030; J7060; Z7610